=== PATIENT | female | born 1945 | race Two or more races ===

== ENCOUNTER 2017-01-16 10:10 | Emergency (ER) | payer MEDICARE, OTHER ==
[~2017-01-16] VITALS: Ht 149.9 cm; Wt 95.7 kg
[~2017-01-16 10:10] MED LIST: CLIN1CAP4 PO; HYDR-4663 PO; OMEP20CA74 PO; OXYB15TA12 PO
[2017-01-16 11:32] LABS: Basophils # (auto) 0 uL; Basophils % (auto) 0.4 % (0.0-2.0); CONDITION Y; Eosinophils # (auto) 0.1 uL; Eosinophils % (auto) 0.6 % (0.0-7.0); Hematocrit 40.3 % (36.0-46.0); Hemoglobin 13.5 g/dL (12.2-16.2); Lymphocytes % (auto) 7.8 % (10.0-50.0); Mean Corpuscular Hemoglobin 29.1 pg (28.0-32.0); Mean Corpuscular Hgb Conc. 33.5 g/dL (32.0-36.0); Mean Corpuscular Volume 86.8 fL (80.0-100.0); Mean Platelet Volume 10.4 fL (7.4-10.4); Monocytes # (auto) 1.5 uL; Neutrophils % (auto) 79.2 % (37.0-80.0); Platelet Count (auto) 223 10^3/uL (140-450); Red Cell Distribution Width 13.8 % (11.6-16.0); White Blood Cell 12.6 10^3/uL (4.4-10.8)
[2017-01-16 12:05] LABS: Albumin 2.7 g/dL (3.4-5.0); BUN/Creatinine Ratio 16.2; Bilirubin, Total 1.1 mg/dL (0.2-1.0); Calcium 8.4 mg/dL (8.5-10.1)
[2017-01-16 12:09] LABS: Potassium 2.6 mmol/L (3.5-5.1)
[2017-01-16 14:21] LABS: Urine Bilirubin Negative (Negative); Urine Blood Negative /uL (Negative); Urine Color Yellow (Yellow); Urine Glucose Normal (Normal); Urine Ketone Negative (Negative); Urine Nitrite Negative (Negative); Urine RBC 1 /hpf (0 - 4); Urine Squamous Epithelial Cell FEW /hpf (<5); Urine pH 6.5 (5.0-8.0)
[2017-01-16] MEDS ORDERED: POTASSIUM CHL 10% (20 MEQ/15ML) ORAL SOLN PO ONE ×2 (15:30→18:00)
[2017-01-16] MEDS ORDERED: SODIUM CHLORIDE 0.9% 1,000 ML IV ONE (15:45)
[2017-01-16 15:53] VITALS: BP 170/89
[2017-01-16] MEDS ORDERED: CIPROFLOXACIN HCL 500 MG TAB PO ONE (16:00)
[2017-01-16] MEDS ORDERED: ONDANSETRON HCL 4 MG/2 ML VIAL IV ONE (16:45)
== END 2017-01-16 18:08 | disposition home or self-care (01) ==
LOC: ER 10:10
DX: N39.0 Urinary tract infection, site not specified (principal); E87.6 Hypokalemia; I10 Essential (primary) hypertension; Z90.710 Acquired absence of both cervix and uterus; Z88.0 Allergy status to penicillin
CPT/HCPCS: 36415; 80053; 81001; 83690; 84132; 85025; 93005; 96361; 96374; 99285; J2405; J7030

== ENCOUNTER 2018-03-04 23:03 | Inpatient (IN) | payer OTHER ==
[~2018-03-04] VITALS: Ht 152.4 cm; Wt 91.6 kg
[~2018-03-04 23:03] MED LIST changes: -HYDR-4663 PO; +HYDR-4683 PO
[2018-03-04] MEDS ORDERED: ONDANSETRON ODT 4 MG TAB PO ONE (23:30)
[2018-03-04 23:49] LABS: Basophils # (auto) 0 uL; Basophils % (auto) 0.2 % (0.0-2.0); Eosinophils # (auto) 0 uL; Eosinophils % (auto) 0.2 % (0.0-7.0); Hematocrit 45.3 % (36.0-46.0); Lymphocytes # (auto) 0.6 uL; Lymphocytes % (auto) 5.7 % (10.0-50.0); Mean Corpuscular Hemoglobin 29.4 pg (28.0-32.0); Monocytes # (auto) 0.8 uL; Monocytes % (auto) 6.8 % (0.0-12.0); Neutrophils # (auto) 9.9 uL; Neutrophils % (auto) 87.1 % (37.0-80.0); Platelet Count (auto) 200 10^3/uL (140-450); Red Blood Cells 5.09 10^6/uL (4.0-5.20); Red Cell Distribution Width 14.2 % (11.8-14.3); White Blood Cell 11.4 10^3/uL (4.4-10.8)
[2018-03-05 00:05] LABS: Alanine Aminotransferase 21 U/L (13-56); Albumin 3.2 g/dL (3.4-5.0); Anion Gap 10 (5-15); Aspartate Aminotransferase 24 U/L (15-37); Blood Urea Nitrogen 15 mg/dL (7-18); Calcium 8.2 mg/dL (8.5-10.1); Carbon Dioxide 22 mmol/L (21-32); Chloride 104 mmol/L (98-107); GFR African American 127 mL/min; GFR Non-African American 105 mL/min; Glucose 109 mg/dL (74-106); Potassium 3.1 mmol/L (3.5-5.1); Sodium 136 mmol/L (136-145)
[2018-03-05 00:10] LABS: Alkaline Phosphatase 112 U/L (45-117); Total Protein 7.4 g/dL (6.4-8.2)
[2018-03-05] MEDS ORDERED: IOHEXOL 300 MG/ML 100ML BOTTLE IJ ONE (03:11)
[2018-03-05] MEDS ORDERED: LOPERAMIDE 2 MG/10ml ORAL soln PO ONE (03:15)
[2018-03-05] MEDS ORDERED: PANTOPRAZOLE 40 MG/10 ML VIAL IV ONE (03:15)
[2018-03-05] MEDS: POTASSIUM CHL 20MEQ/100ML 100 ML IV SCH ×2 (03:30→05:55)
[2018-03-05] MEDS ORDERED: POTASSIUM CHL 20 Meq TABLET PO ONE (06:30)
[2018-03-05] MEDS ORDERED: ONDANSETRON HCL 4 MG/2 ML VIAL IV PRN (07:15)
[2018-03-05] MEDS ORDERED: HYDROcodone-ACET 5/325MG TAB PO PRN (07:15)
[2018-03-05] MEDS ORDERED: TEMAZEPAM 15 MG CAP PO PRN (07:15)
[2018-03-05] MEDS ORDERED: ACETAMINOPHEN 500 MG TAB PO PRN (07:15)
[2018-03-05] MEDS ORDERED: MORPHINE SULF INJ 2 MG/ML SYRINGE 1ML IV PRN (07:15)
[2018-03-05] MEDS ORDERED: SODIUM CHLORIDE 0.9% 1,000 ML IV ONE (08:00)
[2018-03-05] MEDS ORDERED: metroNIDAZOLE 500MG/100ML 100 ML IV ONE (08:00)
[2018-03-05 08:22] LABS: Basophils # (auto) 0 uL; Basophils % (auto) 0.1 % (0.0-2.0); Eosinophils # (auto) 0 uL; Eosinophils % (auto) 0.3 % (0.0-7.0); Hematocrit 45.1 % (36.0-46.0); Hemoglobin 15.6 g/dL (12.2-16.2); Lymphocytes # (auto) 0.5 uL; Lymphocytes % (auto) 6.8 % (10.0-50.0); Mean Corpuscular Hemoglobin 30.8 pg (28.0-32.0); Mean Corpuscular Hgb Conc. 34.5 g/dL (32.0-36.0); Mean Corpuscular Volume 89.4 fL (80.0-100.0); Monocytes # (auto) 0.4 uL; Monocytes % (auto) 5.2 % (0.0-12.0); Neutrophils # (auto) 6.7 uL; Neutrophils % (auto) 87.6 % (37.0-80.0); Nucleated Red Blood Cells % 0.1 %; Platelet Count (auto) 166 10^3/uL (140-450); Red Blood Cells 5.05 10^6/uL (4.0-5.20); Red Cell Distribution Width 14.3 % (11.8-14.3); White Blood Cell 7.6 10^3/uL (4.4-10.8)
[2018-03-05 08:32] LABS: BUN/Creatinine Ratio 19.1; Calcium 8.2 mg/dL (8.5-10.1); Potassium 4.1 mmol/L (3.5-5.1)
[2018-03-05 08:52] LABS: Urine Bacteria MANY /hpf (None Seen); Urine Blood 1+ /uL (Negative); Urine Specific Gravity 1.037 (1.001-1.035); Urine WBC 3 /hpf (0 - 5)
[2018-03-05] MEDS: metroNIDAZOLE 500MG/100ML 100 ML IV SCH (16:25)
[2018-03-06] MEDS: metroNIDAZOLE 500MG/100ML 100 ML IV SCH ×3 (00:17→16:29)
[2018-03-06 01:07] VITALS: BP 134/66
[2018-03-06 05:04] VITALS: BP 133/72
[2018-03-06 06:02] LABS: Basophils # (auto) 0 uL; Basophils % (auto) 0.2 % (0.0-2.0); Eosinophils # (auto) 0.1 uL; Eosinophils % (auto) 1.3 % (0.0-7.0); Hematocrit 39.8 % (36.0-46.0); Hemoglobin 13.6 g/dL (12.2-16.2); Lymphocytes # (auto) 0.6 uL; Lymphocytes % (auto) 8.3 % (10.0-50.0); Mean Corpuscular Hemoglobin 30.5 pg (28.0-32.0); Mean Corpuscular Hgb Conc. 34.3 g/dL (32.0-36.0); Mean Corpuscular Volume 89.1 fL (80.0-100.0); Monocytes # (auto) 0.9 uL; Monocytes % (auto) 12.7 % (0.0-12.0); Neutrophils # (auto) 5.3 uL; Neutrophils % (auto) 77.5 % (37.0-80.0); Platelet Count (auto) 145 10^3/uL (140-450); Red Blood Cells 4.46 10^6/uL (4.0-5.20); Red Cell Distribution Width 14.5 % (11.8-14.3); White Blood Cell 6.9 10^3/uL (4.4-10.8)
[2018-03-06 06:27] LABS: BUN/Creatinine Ratio 32.5; Calcium 7.5 mg/dL (8.5-10.1); Magnesium 2.3 mg/dL (1.6-2.6)
[2018-03-06 06:35] LABS: Potassium 2.8 mmol/L (3.5-5.1)
[2018-03-06] MEDS ORDERED: POTASSIUM CHL 20MEQ/100ML 100 ML IV ONE (07:15)
[2018-03-06] MEDS ORDERED: POTASSIUM CHL 20 Meq TABLET PO ONE (07:15)
[2018-03-06 09:00] VITALS: BP 127/60
[2018-03-06] MEDS ORDERED: LOPERAMIDE HCL 2 MG CAP PO ONE (10:00)
[2018-03-06] MEDS ORDERED: LOPERAMIDE HCL 2 MG CAP PO PRN (10:00)
[2018-03-06] MEDS ORDERED: LEVOFLOXACIN 500 MG TAB PO ONE (10:00)
[2018-03-06 13:00] VITALS: BP 130/60
[2018-03-06 17:00] VITALS: BP 134/64
== END 2018-03-06 19:05 | disposition home or self-care (01) | DRG 372 ==
LOC: ER 23:11 → OVERFLOW 23:12 → WEST WING 03-05 23:33 → CENTRAL 03-05 23:39
PROVIDERS: ADMIT Nurse Practitioner Family; ATTEND Internal Medicine
DX: A04.9 Bacterial intestinal infection, unspecified (principal); N39.0 Urinary tract infection, site not specified; K57.92 Diverticulitis of intestine, part unspecified, without perforation or abscess without bleeding; K21.9 Gastro-esophageal reflux disease without esophagitis; E66.01 Morbid (severe) obesity due to excess calories; E78.5 Hyperlipidemia, unspecified; I10 Essential (primary) hypertension; Z82.0 Family history of epilepsy and other diseases of the nervous system; Z83.3 Family history of diabetes mellitus; Z88.0 Allergy status to penicillin; Z71.3 Dietary counseling and surveillance
CPT/HCPCS: 36415; 51702; 70450; 71045; 74177; 80048; 80053; 81001; 82962; 83735; 84132; 84484; 85025; 85048; 87040; 87086; 87088; 87186; 87493; 93005; 96374; 96375; 96376; C9113; J2405; J3480; J3490; Q0162

== ENCOUNTER 2023-10-29 16:54 | Emergency (ER) | payer MEDICARE, OTHER ==
[~2023-10-29] VITALS: Ht 160 cm; Wt 79.5 kg
[~2023-10-29 16:54] MED LIST changes: -CLIN1CAP4 PO; -HYDR-4683 PO; +HYDR-4833 PO
[2023-10-29 17:08] VITALS: BP 119/60; PULSE 102; RESP 16; O2SAT 96
[2023-10-29] MEDS ORDERED: cefTRIAXone 1GM/50ML D5W 50 ML IV ONE (17:42)
[2023-10-29] MEDS ORDERED: VANCOMYCIN 1GM/200ML 200 ML IV ONE (17:42)
[2023-10-29] MEDS ORDERED: ACETAMINOPHEN 325 MG TAB PO ONE (17:42)
[2023-10-29] MEDS: SODIUM CHLORIDE 0.9% 2,400 ML IV ONE (17:47)
[2023-10-29] MEDS: cefTRIAXone 1GM/50ML D5W 50 ML IV ONE (17:47)
[2023-10-29] MEDS: VANCOMYCIN 1GM/200ML 200 ML IV ONE (17:53)
[2023-10-29 17:59] LABS: Basophils # (auto) 0.1 10 ^3/uL (0-0.2); Basophils % (auto) 0.7 % (0.0-2.0); Eosinophils # (auto) 0.1 10 ^3/uL (0-0.8); Eosinophils % (auto) 1.2 % (0.0-7.0); Hematocrit 38.2 % (36.0-46.0); Hemoglobin 12.5 g/dL (12.2-16.2); Lymphocytes # (auto) 0.5 10 ^3/uL (0.4-5.4); Lymphocytes % (auto) 5.9 % (10.0-50.0); Mean Corpuscular Hemoglobin 28.4 pg (28.0-32.0); Mean Corpuscular Hgb Conc. 32.6 g/dL (32.0-36.0); Mean Corpuscular Volume 86.9 fL (80.0-100.0); Monocytes # (auto) 0.6 10 ^3/uL (0-1.3); Neutrophils # (auto) 6.8 10 ^3/uL (1.6-8.6); Neutrophils % (auto) 85.2 % (37.0-80.0); Red Cell Distribution Width 14.3 % (11.8-14.3)
[2023-10-29 18:17] LABS: Alanine Aminotransferase 20 U/L (7-40); Albumin 3.6 g/dL (3.2-4.8); Alkaline Phosphatase 143 U/L (46-116); Anion Gap 7 (5-15); Aspartate Aminotransferase 41 U/L (13-40); BUN/Creatinine Ratio 24.3 (10.0-20.0); Bilirubin, Total 0.6 mg/dL (0.2-1.0); Blood Urea Nitrogen 18 mg/dL (9-23); Calcium 9.1 mg/dL (8.7-10.4); Carbon Dioxide 29 mmol/L (20-30); Chloride 104 mmol/L (98-107); Glucose 107 mg/dL (74-106); Potassium 3.5 mmol/L (3.5-5.1); Sodium 140 mmol/L (136-145); Total Protein 5.9 g/dL (5.7-8.2)
[2023-10-29 18:30] LABS: COVID19 ANTIGEN SOFIA FIA NEGATIVE (NEGATIVE)
[2023-10-29] MEDS: ACETAMINOPHEN 325 MG TAB PO ONE (21:13)
== END 2023-10-29 21:14 | disposition left against medical advice (07) ==
LOC: EDBD 16:54 → ER 16:54
DX: A41.9 Sepsis, unspecified organism (principal); J18.9 Pneumonia, unspecified organism; I10 Essential (primary) hypertension; Z90.49 Acquired absence of other specified parts of digestive tract; Z88.0 Allergy status to penicillin; Z11.52 Encounter for screening for COVID-19
CPT/HCPCS: 36415; 71045; 80053; 83605; 84484; 85025; 87040; 87426; 96365; 96366; 96368; 99284; J0696; J3370; J7030; J7040

== ENCOUNTER 2024-05-05 20:19 | Inpatient (IN) | payer MEDICARE, OTHER ==
[~2024-05-05] VITALS: Ht 162.6 cm; Wt 98.2 kg
[~2024-05-05 20:19] MED LIST changes: +CHLO0.12 PO; +FURO20TA3 PO; +MECL-90 PO
[2024-05-05 20:56] LABS: Basophils # (auto) 0.1 10 ^3/uL (0-0.2); Basophils % (auto) 1.6 % (0.0-2.0); Eosinophils # (auto) 0.4 10 ^3/uL (0-0.8); Eosinophils % (auto) 5.3 % (0.0-7.0); Hematocrit 23.5 % (36.0-46.0); Lymphocytes # (auto) 0.9 10 ^3/uL (0.4-5.4); Lymphocytes % (auto) 13.3 % (10.0-50.0); Mean Corpuscular Hemoglobin 18.5 pg (28.0-32.0); Mean Corpuscular Hgb Conc. 28.3 g/dL (32.0-36.0); Mean Corpuscular Volume 65.6 fL (80.0-100.0); Monocytes # (auto) 0.9 10 ^3/uL (0-1.3); Neutrophils # (auto) 4.4 10 ^3/uL (1.6-8.6); Neutrophils % (auto) 65.8 % (37.0-80.0); Nucleated Red Blood Cells % 0.3 %; Platelet Count (auto) 201 10^3/uL (140-450); Red Blood Cells 3.59 10^6/uL (4.0-5.20); Red Cell Distribution Width 19.2 % (11.8-14.3); White Blood Cell 6.7 10^3/uL (4.4-10.8)
[2024-05-05 20:58] LABS: Chloride 108 mmol/L (98-107); Potassium 2.8 mmol/L (3.5-5.1); Sodium 140 mmol/L (136-145)
[2024-05-05 20:59] LABS: Anion Gap 6 (5-15); Carbon Dioxide 26 mmol/L (20-31)
[2024-05-05 21:00] LABS: Calcium 8.5 mg/dL (8.7-10.4)
[2024-05-05 21:04] LABS: BUN/Creatinine Ratio 16.7 (10.0-20.0); Blood Urea Nitrogen 11 mg/dL (9-23); Glucose 117 mg/dL (74-106)
[2024-05-05 21:05] LABS: Hemoglobin 6.6 g/dL (12.2-16.2); Magnesium 1.9 mg/dL (1.6-2.6)
[2024-05-05 21:17] VITALS: PULSE 92; RESP 25; O2SAT 97
[2024-05-05] MEDS: dilTIAZem 25 MG/5 ML VIAL IV ONE ×2 (21:24→22:55)
[2024-05-05] MEDS: dilTIAZem HCL 50 MG/10 ML VIAL IV ONE (21:26)
[2024-05-05] MEDS: FUROSEMIDE 40 MG/4 ML VIAL IV ONE (22:01)
[2024-05-05] MEDS: POTASSIUM CHL 20MEQ/100ML 100 ML IV ONE (22:14)
[2024-05-05] MEDS ORDERED: ALBUTEROL SULF 2.5 MG/0.5ML(0.5%) NEB SOLN NEB PRN (22:45)
[2024-05-05] MEDS ORDERED: MORPHINE SULFATE INJ 2 MG/ml SYRG IV PRN (23:00)
[2024-05-05] MEDS ORDERED: NITROGLYCERIN 0.4 MG SL TAB SL PRN (23:00)
[2024-05-05] MEDS ORDERED: ONDANSETRON HCL 4 MG/2 ML VIAL IV PRN (23:00)
[2024-05-05 23:29] LABS: Urine Bacteria None Seen /hpf (None Seen)
[2024-05-05] MEDS: PANTOPRAZOLE 80 MG in SODIUM CHL 0.9% 100 ML IV ONE (23:44)
[2024-05-05] MEDS: PANTOPRAZOLE 40 MG/10 ML VIAL INJ IV ONE (23:44)
[2024-05-05] MEDS: PANTOPRAZOLE 40mg/50ML NS AE 50 ML IV ONE (23:48)
[2024-05-05 23:49] LABS: Urine Blood Negative /uL (Negative); Urine Clarity Clear (Clear); Urine Color Light-Yellow (Yellow); Urine Protein, UAD Negative (Negative); Urine Specific Gravity 1.011 (1.001-1.035); Urine Urobilinogen Normal (Negative); Urine WBC <1 /hpf (0 - 5)
[2024-05-06] VITALS (19 sets, daily range): BP systolic 110–164; BP diastolic 56–96; PULSE 76–154; RESP 16–27; TEMP 97.8–98.9; O2SAT 93–98
[2024-05-06] MEDS: AZITHROMYCIN 500MG/ 250ML 250 ML IV ONE (00:06)
[2024-05-06] MEDS ORDERED: MORPHINE SULFATE INJ 2 MG/ml SYRG IV PRN (01:45)
[2024-05-06] MEDS ORDERED: ONDANSETRON HCL 4 MG/2 ML VIAL IV PRN (01:45)
[2024-05-06] MEDS ORDERED: NITROGLYCERIN 0.4 MG SL TAB SL PRN (01:45)
[2024-05-06] MEDS ORDERED: ALBUTEROL SULF 2.5 MG/0.5ML(0.5%) NEB SOLN NEB PRN (01:45)
[2024-05-06] MEDS ORDERED: LISI-285 PO (01:50)
[2024-05-06] MEDS ORDERED: POTA-228 PO (01:50)
[2024-05-06] MEDS: PANTOPRAZOLE 40mg/50ML NS AE 50 ML IV ONE (01:50)
[2024-05-06] MEDS: AMIODARONE BOLUS KIT 100 ML IV ONE (03:40)
[2024-05-06] MEDS: AMIODARONE 450mg/250ml AE 250 ML IV SCH ×2 (03:53→11:42)
[2024-05-06 09:30] LABS: Basophils # (auto) 0.1 10 ^3/uL (0-0.2)
[2024-05-06 09:36] LABS: Eosinophils # (auto) 0.2 10 ^3/uL (0-0.8); Eosinophils % (auto) 2.9 % (0.0-7.0); Hematocrit 29.3 % (36.0-46.0); Hemoglobin 8.5 g/dL (12.2-16.2); Lymphocytes # (auto) 0.8 10 ^3/uL (0.4-5.4); Lymphocytes % (auto) 9.5 % (10.0-50.0); Monocytes # (auto) 1.1 10 ^3/uL (0-1.3); Monocytes % (auto) 13.6 % (0.0-12.0); Nucleated Red Blood Cells % 0.3 %; Platelet Count (auto) 200 10^3/uL (140-450); Red Blood Cells 4.25 10^6/uL (4.0-5.20); Red Cell Distribution Width 22.6 % (11.8-14.3); White Blood Cell 8.2 10^3/uL (4.4-10.8)
[2024-05-06 09:50] LABS: Alanine Aminotransferase 12 U/L (7-40); Albumin 3.2 g/dL (3.2-4.8); Alkaline Phosphatase 118 U/L (46-116); Anion Gap 7 (5-15); BUN/Creatinine Ratio 14.8 (10.0-20.0); Blood Urea Nitrogen 8 mg/dL (9-23); Calcium 8.6 mg/dL (8.7-10.4); Carbon Dioxide 26 mmol/L (20-31); Chloride 106 mmol/L (98-107); Glucose 111 mg/dL (74-106); Potassium 2.8 mmol/L (3.5-5.1); Sodium 139 mmol/L (136-145)
[2024-05-06 09:51] LABS: Aspartate Aminotransferase 24 U/L (13-40); Bilirubin, Total 1.2 mg/dL (0.2-1.0); Total Protein 5.8 g/dL (5.7-8.2)
[2024-05-06] MEDS: FUROSEMIDE 20 MG/2 ML VIAL IV SCH (11:40)
[2024-05-06] MEDS: PANTOPRAZOLE 40mg/50ML NS AE 50 ML IV SCH (11:48)
[2024-05-06] MEDS: POTASSIUM CHL 20MEQ/100ML 100 ML IV SCH (16:09)
[2024-05-06] MEDS ORDERED: AZITHROMYCIN 500MG/ 250ML 250 ML IV SCH (21:00)
[2024-05-06] MEDS: SACUBITRIL-VALSARTAN 24mg/26mg TAB PO SCH (21:42)
[2024-05-06] MEDS: METOPROLOL TARTRATE 25 MG TAB PO SCH (21:43)
[2024-05-06] MEDS: AZITHROMYCIN 500MG/ 250ML 250 ML IV SCH (21:58)
[2024-05-06] MEDS ORDERED: SUCRALFATE 1 GM/10 ML ORAL SUSP PO SCH (22:00)
[2024-05-07] VITALS (11 sets, daily range): BP systolic 110–175; BP diastolic 54–95; PULSE 61–81; RESP 12–19; TEMP 97.9–98.3; O2SAT 90–100
[2024-05-07 05:56] LABS: Basophils # (auto) 0.1 10 ^3/uL (0-0.2); Eosinophils # (auto) 0.3 10 ^3/uL (0-0.8); Monocytes # (auto) 1.2 10 ^3/uL (0-1.3); Neutrophils # (auto) 7.3 10 ^3/uL (1.6-8.6)
[2024-05-07 05:58] LABS: Basophils % (auto) 0.8 % (0.0-2.0); Eosinophils % (auto) 2.9 % (0.0-7.0); Hematocrit 31.5 % (36.0-46.0); Hemoglobin 9.7 g/dL (12.2-16.2); Lymphocytes % (auto) 10.6 % (10.0-50.0); Mean Corpuscular Hgb Conc. 30.6 g/dL (32.0-36.0); Mean Corpuscular Volume 68.8 fL (80.0-100.0); Monocytes % (auto) 11.7 % (0.0-12.0); Nucleated Red Blood Cells % 0.3 %; Platelet Count (auto) 199 10^3/uL (140-450); Red Blood Cells 4.58 10^6/uL (4.0-5.20); White Blood Cell 9.8 10^3/uL (4.4-10.8)
[2024-05-07 06:08] LABS: INR 1.07 (0.9-1.15); Partial Thromboplastin Time 26.5 SEC (24.5-34.5); Prothrombin Time 11.3 sec (9.3-11.8)
[2024-05-07 06:12] LABS: Alanine Aminotransferase 13 U/L (7-40); Albumin 3.3 g/dL (3.2-4.8); Alkaline Phosphatase 117 U/L (46-116); Anion Gap 8 (5-15); Aspartate Aminotransferase 28 U/L (13-40); BUN/Creatinine Ratio 17.5 (10.0-20.0); Blood Urea Nitrogen 10 mg/dL (9-23); Calcium 8.6 mg/dL (8.7-10.4); Carbon Dioxide 26 mmol/L (20-31); Chloride 104 mmol/L (98-107); Cholesterol 110 mg/dL (< 200); Glucose 100 mg/dL (74-106); LDL Cholesterol 65 mg/dL (< 100); Magnesium 1.6 mg/dL (1.6-2.6); Potassium 3.5 mmol/L (3.5-5.1); Sodium 138 mmol/L (136-145); Triglycerides 101 mg/dL (< 150)
[2024-05-07 06:13] LABS: Bilirubin, Total 0.8 mg/dL (0.2-1.0); HDL Cholesterol 34 mg/dL (40-59); Total Protein 5.8 g/dL (5.7-8.2)
[2024-05-07 06:36] LABS: Anisocytosis Slight; Hypochromia Moderate
[2024-05-07 06:37] LABS: Large Platelets MODERATE; Ovalocytes FEW; Platelet Estimate Adequa; Stomatocytes Few
[2024-05-07] MEDS: PANTOPRAZOLE 40mg/50ML NS AE 50 ML IV SCH (07:04)
[2024-05-07] MEDS: EMPAGLIFLOZIN 10 MG TAB PO SCH (09:43)
[2024-05-07] MEDS: SPIRONOLACTONE 25 MG TAB PO SCH (09:43)
[2024-05-07] MEDS: MAGNESIUM SULFATE 1GM/100ML 100 ML IV ONE (10:30)
[2024-05-07] MEDS ORDERED: PROPOFOL 10 MG/ML 20 ML IV ONE (12:00)
[2024-05-07] MEDS ORDERED: ONDANSETRON HCL 4 MG/2 ML VIAL ONE (12:00)
[2024-05-07] MEDS ORDERED: MIDAZOLAM HCL 2MG/2ML 2ml VIAL (1mg/ml) ONE (12:00)
[2024-05-07] MEDS ORDERED: GLYCOPYRROLATE 0.2 MG/ML 1ML VIAL ONE (12:00)
[2024-05-07] MEDS ORDERED: fentaNYL CITRATE 100 MCG/2 ML VL ONE (12:00)
[2024-05-07] MEDS ORDERED: LIDOCAINE 2% (LOCAL ANESTH.) PF 5ml SDV ONE (12:00)
[2024-05-07] MEDS ORDERED: HYDROmorphone HCL 2 MG/ML VL/or syr IV PRN (12:30)
[2024-05-07] MEDS: ACCU-CHEK COMFORT CURVE STRIP VI ONE (12:30)
[2024-05-07] MEDS: ONDANSETRON HCL 4 MG/2 ML VIAL IV ONE (12:30)
[2024-05-07] MEDS: POTASSIUM CHL 20 Meq TABLET PO ONE (13:34)
[2024-05-07] MEDS: SUCRALFATE 1 GM/10 ML ORAL SUSP PO SCH (16:07)
[2024-05-07] MEDS ORDERED: SUCRALFATE 1 GM/10 ML ORAL SUSP GT SCH (17:00)
== END 2024-05-07 22:40 | disposition left against medical advice (07) | DRG 377 ==
LOC: ER 20:19 → EDBD 20:19 → TELE 22:53 → TELE-WESTW 22:56 → ER 22:56 → TELE-WESTW 23:52
PROVIDERS: ADMIT Nurse Practitioner; ATTEND Internal Medicine Geriatric Medicine
PROC: 30233N1 Transfusion of Nonautologous Red Blood Cells into Peripheral Vein, Percutaneous Approach (ICD-10-PCS; 2024-05-06)
PROC: 0DB68ZX Excision of Stomach, Via Natural or Artificial Opening Endoscopic, Diagnostic (ICD-10-PCS; 2024-05-07)
PROC: 0DB98ZX Excision of Duodenum, Via Natural or Artificial Opening Endoscopic, Diagnostic (ICD-10-PCS; principal; 2024-05-07 12:03)
DX: K25.4 Chronic or unspecified gastric ulcer with hemorrhage (principal); I50.23 Acute on chronic systolic (congestive) heart failure; J18.9 Pneumonia, unspecified organism; D62 Acute posthemorrhagic anemia; I31.39 Other pericardial effusion (noninflammatory); K29.71 Gastritis, unspecified, with bleeding; I11.0 Hypertensive heart disease with heart failure; I48.91 Unspecified atrial fibrillation; E87.6 Hypokalemia; I08.1 Rheumatic disorders of both mitral and tricuspid valves; K44.9 Diaphragmatic hernia without obstruction or gangrene; T39.395A Adverse effect of other nonsteroidal anti-inflammatory drugs [NSAID], initial encounter; Z53.29 Procedure and treatment not carried out because of patient's decision for other reasons; N32.81 Overactive bladder; E83.42 Hypomagnesemia; K21.9 Gastro-esophageal reflux disease without esophagitis; Z87.891 Personal history of nicotine dependence; Z88.0 Allergy status to penicillin; Z79.899 Other long term (current) drug therapy; Z90.49 Acquired absence of other specified parts of digestive tract; Z82.49 Family history of ischemic heart disease and other diseases of the circulatory system; Z82.5 Family history of asthma and other chronic lower respiratory diseases; Z82.0 Family history of epilepsy and other diseases of the nervous system; Z83.3 Family history of diabetes mellitus; Y92.89 Other specified places as the place of occurrence of the external cause
CPT/HCPCS: 36415; 71045; 80048; 80053; 80061; 81001; 82962; 83036; 83605; 83735; 83880; 84443; 84484; 85025; 85610; 85730; 86850; 86900; 86901; 86920; 93005; 93306; 99291; G0378; J2003; J2250; J2405; J2470; J2704; J3480